=== PATIENT | female | born 1990 | race Caucasian/White ===

== ENCOUNTER 2019-08-26 07:07 | Day surgery (SDC) | payer MEDICAID ==
[~2019-08-26 07:07] MED LIST: HYDROmorphone 2 MG/ML VIAL IV PRN; IV RINGERS,LACTATED 1000ML 1,000 ML IV SCH; MORPHINE SULFATE 2 MG/ML VIAL. IV PRN; ONDANSETRON PF 4 MG/2 ML VIAL. IV PRN; PNV1TABL78 PO; PROCHLORPERAZINE 10 MG/2 ML VIAL. IV PRN; fentaNYL PF VIAL 100 MCG/2 ML VIAL IV PRN
[2019-08-26] MEDS ORDERED: ONDANSETRON PF 4 MG/2 ML VIAL. ONE (08:27)
[2019-08-26] MEDS ORDERED: PROPOFOL 20 ML IV ONE (08:27)
[2019-08-26] MEDS ORDERED: DEXAMETHASONE SOD PHOS 4 MG/ML VIAL ONE (08:27)
[2019-08-26] MEDS ORDERED: MIDAZOLAM HCL/PF 2 MG/2 ML VIAL. ONE (08:27)
[2019-08-26] MEDS ORDERED: LIDOCAINE 2% PF 5 ML VIAL. ONE (08:27)
[2019-08-26] MEDS ORDERED: ROCURONIUM 50 MG/5 ML VIAL. ONE (08:27)
[2019-08-26] MEDS ORDERED: fentaNYL PF VIAL 100 MCG/2 ML VIAL ONE (08:27)
[2019-08-26] MEDS ORDERED: BUPIVACAINE-EPI 0.25%-1:200000 MPF 30 ML VIAL. ONE (08:47)
[2019-08-26] MEDS ORDERED: NEOSTIGMINE METHYLSULFATE 5 MG/5 ML SYRINGE. ONE (09:21)
[2019-08-26] MEDS ORDERED: GLYCOPYRROLATE 1 MG/5 ML VIAL. ONE (09:21)
[2019-08-26] MEDS ORDERED: SEVOFLURANE 31 TO 60 MINUTES. IH ONE (09:23)
--- NOTE | 2019-08-26 09:40 | PDOC ---
BRIEF OPERATIVE NOTE Date: Aug 26, 2019 Pre-Op Diagnosis Sterilization Post-Op Diagnosis SAme Procedure Performed [facility] BTL Surgeon Dr. Herrmann Anesthesia Type: General Blood Loss 5 ml Specimens Obtained marisol. fallopian tubes Findings nml size uterus, nml fallopian tubes and ovaries marisol. Complications none Operative Note see dictation KEYONA HERRMANN Jr, MD Aug 26, 2019 09:40
--- NOTE | 2019-08-26 09:41 | DISCH ---
DISCHARGE INSTRUCTIONS Condition on Discharge Condition on Discharge: Stable Activity After Discharge Activity Instructions for Disc: Activity as tolerated Lifting Instructions after Dis: No heavy lifting Driving Instructions after Dis: Do not drive today Diet after Discharge Diet after Discharge: Regular Contacting the DREliceo after DC Call your doctor for: Concerns you may have Follow-Up Follow up with: Dr. Herrmann in 1 week KEYONA HERRMANN Jr, MD Aug 26, 2019 09:41
--- NOTE | 2019-08-26 09:51 | OP ---
DATE OF SURGERY: 08/26/2019 PREOPERATIVE DIAGNOSIS: Sterilization. POSTOPERATIVE DIAGNOSIS: Sterilization. PROCEDURE: Laparoscopic BTL via bilateral salpingectomy. SURGEON: Keyona Herrmann MD ANESTHESIA: GETA. ESTIMATED BLOOD LOSS: 5 mL. COMPLICATIONS: None. FINDINGS: Normal size uterus. Normal fallopian tubes and ovaries bilaterally. SUMMARY: This is a 29-year-old female who desired permanent sterilization. She was counseled on risks, benefits, and expectations as well as failure rate and voiced clear understanding to proceed. DESCRIPTION OF PROCEDURE: The patient was taken to surgery suite and placed in dorsal lithotomy position. She was prepped with Betadine solution for vaginal prep and ChloraPrep for abdominal prep. After adequate anesthesia, bivalve speculum was placed vaginally. Anterior lip of the cervix grasped with single tooth tenaculum. Uterine acorn manipulator was then placed. The bivalve speculum was removed. Attention was now placed on abdomen. A low transverse incision was made just below the umbilicus with a scalpel. The Veress needle was then placed through the infraumbilical incision site. The abdomen was allowed to insufflate up to 1-1/2 liters of CO2 gas. The Veress needle was then removed, 5 mm trocar was placed. The scope was positioned. The uterus, fallopian tubes, and ovaries appeared normal bilaterally. Two additional incisions were made in the left lower quadrant in which a 5 mm and 8 mm port were placed. With aid of Dannie retractors and EnSeal device, the right distal end of the fallopian tube was coagulated, dissected, and removed. The area was hemostatic. Same process took place with left adnexa. The trocars were then removed under direct visualization. The abdomen was allowed to deflate as much as possible along with mechanical manipulation. The three skin incisions were re-approximated using 4-0 Vicryl suture in subcuticular manner. A 0.25% Marcaine with epinephrine was injected at each incision site. Uterine acorn manipulator and single tooth tenaculum were then removed. The patient tolerated the procedure well and was taken to recovery room in stable condition. Sponge and needle count correct x 3. KEYONA HERRMANN MD DR: MATTHEW/sumeet JOB#: [id number] / [id number]
[2019-08-26] MEDS: fentaNYL PF VIAL 100 MCG/2 ML VIAL IV PRN ×2 (10:05→10:26)
[2019-08-26] MEDS ORDERED: GABA600T7 PO (10:14)
[2019-08-26] MEDS ORDERED: GABAPENTIN 300 MG CAPSULE. PO PRN (10:15)
[2019-08-26 11:05] VITALS: BP 93/26
--- NOTE | 2019-08-27 18:06 | PATHOLOGY ---
[facility] Accession Number: [id number] . 01 Material submitted: . PART A: fallopian tube - RIGHT FALLOPIAN TUBE. Modifiers: right PART B: fallopian tube - LEFT FALLOPIAN TUBE. Modifiers: left . 01 Clinical history: . None provided . 02 Diagnosis: A. Right tubal ligation: - Segment of fallopian tube confirmed. . B. Left tubal ligation: - Segment of fallopian tube confirmed. - Paratubal cyst. . (JPM:melany; 08/27/2019) MBR 08/27/2019 1543 Local . 02 Electronically signed: . William Crain MD, Pathologist NPI- [id number] . 01 Gross description: . A. The specimen is received in formalin, labeled "Huehl, Myriam, right fallopian tube" and consists of a partial fimbriated fallopian tube segment measuring 3.8 cm in length and up to 0.5 cm in diameter. Sectioning reveals a well-defined lumen and international account representative sections are submitted in A1. . B. The specimen is received in formalin, labeled "Huehl, Myriam, left fallopian tube" and consists of a fimbriated fallopian tube segment measuring 4.0 cm in length and 0.5 cm in diameter with a paratubal cyst measuring 0.8 cm. Sectioning reveals the cyst contains clear fluid and the fallopian tube lumen is well-defined with no gross lesions. Wastewater Process Engineer sections are submitted in B1. (MARIELENA; 08/26/2019) SYU/SYU 08/26/2019 1539 Local . 02 Pathologist provided ICD-10: N83.8 . 02 CPT . 145376, [id number] Specimen Comment: A courtesy copy of this report has been sent to [phone] Specimen Comment: Report sent to Performed at: [address] [facility] [address], [place], [place] [id number] MD Brendon Villanueva MD Phone: [phone] Performed at: 02 [facility] [place] [address] [place], [place] [id number] MD William Crain MD Phone: [phone]
== END 2019-08-26 11:45 | disposition home or self-care (01) ==
LOC: SURG 07:07
PROVIDERS: ATTEND Obstetrics & Gynecology
DX: Z30.2 Encounter for sterilization (principal); N83.8 Other noninflammatory disorders of ovary, fallopian tube and broad ligament; Z88.8 Allergy status to other drugs, medicaments and biological substances; Z88.6 Allergy status to analgesic agent; Z79.899 Other long term (current) drug therapy
CPT/HCPCS: 58661; 81025; A7015; J0780; J1100; J2001; J2250; J2405; J2704; J2710; J3010; J3490